=== PATIENT | female | born 1995 | race Two or more races ===

== ENCOUNTER 2022-06-29 08:05 | Inpatient (IN) | payer OTHER ==
[2022-06-29] MEDS ORDERED: DINOPROSTONE 10 MG VAGINAL SUPPOSITORY VG ONE ×2 (10:00→22:50)
[2022-06-29 10:08] VITALS: BMI 28.9
[2022-06-29] MEDS: DEXTROSE 5%-LACTATED RINGERS 1,000 ML IV SCH (10:30)
[2022-06-30] MEDS: DEXTROSE 5%-LACTATED RINGERS 1,000 ML IV SCH ×3 (02:30→17:28)
[2022-06-30] MEDS ORDERED: OXYTOCIN 30 UNITS in 0.9% NS 30 UNIT/500 ML INFUS.BAG IVPB ONE (13:40)
[2022-06-30] MEDS ORDERED: BUTORPHANOL TARTRATE 2 MG/ML VIAL IVPB PRN ×2 (14:12→20:42)
[2022-06-30] MEDS ORDERED: PROMETHAZINE HCL 25 MG/1 ML VIAL IVPB PRN ×2 (14:12→20:42)
[2022-06-30] MEDS: OXYTOCIN 30 UNITS in 0.9% NS 30 UNIT/500 ML INFUS.BAG IVPB SCH (14:45)
[2022-06-30] MEDS ORDERED: PROMETHAZINE HCL 25 MG/1 ML VIAL ONE (20:41)
[2022-06-30] MEDS ORDERED: BUTORPHANOL TARTRATE 2 MG/ML VIAL ONE (20:41)
[2022-07-01] MEDS: DEXTROSE 5%-LACTATED RINGERS 1,000 ML IV SCH (01:35)
[2022-07-01] MEDS ORDERED: FENTANYL/BUPIVACAINE/NS/PF - PCEA - 50 ML DISP.SYRIN EP ONE ×3 (04:22→13:43)
[2022-07-01] MEDS ORDERED: NALOXONE HCL 0.4 MG/ML VIAL IVPUSH PRN (04:39)
[2022-07-01] MEDS ORDERED: ELECTROLYTE-148 SOLN 1,000 ML IV SCH (04:45)
[2022-07-01] MEDS: FENTANYL/BUPIVACAINE/NS/PF - PCEA - 50 ML DISP.SYRIN EP SCH ×2 (05:10→09:43)
[2022-07-01] MEDS: OXYTOCIN 30 UNITS in 0.9% NS 30 UNIT/500 ML INFUS.BAG IVPB SCH (14:46)
[2022-07-01] MEDS ORDERED: morphine SULFATE/PF 1 MG/2 ML (2cc Syringe - QUVA) EP ONE (15:27)
[2022-07-01] MEDS ORDERED: ONDANSETRON 4 MG/2 ML VIAL IVPUSH PRN (15:27)
[2022-07-01] MEDS ORDERED: SODIUM CHLORIDE 0.9% P/F 10 ML VIAL IJ ONE (15:30)
[2022-07-01] MEDS ORDERED: ceFAZolin SODIUM 1 GM VIAL ONE (15:30)
[2022-07-01] MEDS ORDERED: LIDOCAINE HCL/EPINEPHRINE/PF 20 ML VIAL ONE (15:33)
[2022-07-01] MEDS ORDERED: morphine SULFATE (PF) 1 MG/2 ML SYRINGE ONE (16:06)
[2022-07-01] MEDS ORDERED: OXYTOCIN 10 UNITS/ML VIAL ONE ×2 (16:12→16:49)
[2022-07-01] MEDS ORDERED: MIDAZOLAM HCL 2 MG/2 ML SINGLE DOSE VIAL ONE (16:15)
[2022-07-01] MEDS ORDERED: METHYLERGONOVINE MALEATE 0.2 MG/1 ML AMP IM PRN (17:03)
[2022-07-01] MEDS ORDERED: SENNOSIDES/DOCUSATE COMBO (SENNA PLUS) TABLET (UD) PO PRN (17:03)
[2022-07-01] MEDS ORDERED: MEPERIDINE HCL 25 MG/ML VIAL IVPUSH ONE (18:03)
[2022-07-01] MEDS: OXYTOCIN 20 UNITS in 0.9% NS 20 UNIT/1,000 ML INFUS.BAG IV SCH (20:02)
[2022-07-01] MEDS: IBUPROFEN 800 MG/8 ML IJ IVPB PRN (20:20)
[2022-07-02] MEDS: OXYTOCIN 20 UNITS in 0.9% NS 20 UNIT/1,000 ML INFUS.BAG IV SCH (03:54)
[2022-07-02] MEDS ORDERED: oxyCODONE HCL 5 MG TABLET PO PRN (05:03)
[2022-07-02] MEDS: IBUPROFEN 800 MG/8 ML IJ IVPB PRN (09:14)
[2022-07-02 09:51] LABS: BASO % 0.3 % (0-2.0); EOS % 0.5 % (0-4.5); HEMATOCRIT 35.5 % (32.4-45.2); HEMOGLOBIN 11.5 GM/dL (10.7-15.3); LYMPH % 12.4 % (8-40); MCH 28.5 pg (25.7-33.7); MCHC 32.4 g/dl (32.0-36.0); MEAN PLT VOLUME 10.2 fl (7.5-11.1); MONO % 5.5 % (3.8-10.2); NEUT % 81.3 % (42.8-82.8); PLATELET COUNT 203 10^3/uL (134-434); RBC 4.04 M/mm3 (3.60-5.2); RDW 15.2 % (11.6-15.6); WHITE BLOOD COUNT 13.2 K/mm3 (4.0-10.0)
[2022-07-02] MEDS: PRENATAL VITAMINS W/ FOLIC ACID TABLET (FP) PO SCH (10:36)
[2022-07-02] MEDS: ACETAMINOPHEN 325 MG TABLET (FP) PO PRN (14:10)
[2022-07-02] MEDS: SIMETHICONE 80 MG TAB.CHEW (FP) PO PRN ×2 (14:10→20:13)
[2022-07-02] MEDS ORDERED: BISACODYL 10 MG SUPP.RECT RC PRN (17:03)
[2022-07-02] MEDS: IBUPROFEN 600 MG TABLET (FP) PO PRN (20:13)
[2022-07-02] MEDS: oxyCODONE HCL 5 MG TABLET PO PRN (22:51)
[2022-07-03] MEDS: SIMETHICONE 80 MG TAB.CHEW (FP) PO PRN ×5 (03:25→21:41)
[2022-07-03] MEDS: IBUPROFEN 600 MG TABLET (FP) PO PRN ×3 (03:25→21:41)
[2022-07-03] MEDS: oxyCODONE HCL 5 MG TABLET PO PRN ×2 (07:40→17:59)
[2022-07-03] MEDS: PRENATAL VITAMINS W/ FOLIC ACID TABLET (FP) PO SCH (09:46)
[2022-07-03 21:46] VITALS: RESP 18; TEMP 97.9
[2022-07-04] MEDS: IBUPROFEN 600 MG TABLET (FP) PO PRN ×3 (01:23→12:40)
[2022-07-04] MEDS: SIMETHICONE 80 MG TAB.CHEW (FP) PO PRN ×2 (06:35→12:40)
[2022-07-04] MEDS: ACETAMINOPHEN 325 MG TABLET (FP) PO PRN (09:05)
[2022-07-04] MEDS: PRENATAL VITAMINS W/ FOLIC ACID TABLET (FP) PO SCH (09:05)
[2022-07-04 10:29] VITALS: BP 124/84; PULSE 80
== END 2022-07-04 14:20 | disposition home or self-care (01) | DRG 540 ==
LOC: JLDR 08:05 → J3W 07-01 19:36
PROVIDERS: ADMIT Obstetrics & Gynecology; ATTEND Obstetrics & Gynecology
PROC: 3E0P7VZ Introduction of Hormone into Female Reproductive, Via Natural or Artificial Opening (ICD-10-PCS; 2022-06-29)
PROC: 3E033VJ Introduction of Other Hormone into Peripheral Vein, Percutaneous Approach (ICD-10-PCS; 2022-06-30)
PROC: 10D00Z1 Extraction of Products of Conception, Low, Open Approach (ICD-10-PCS; principal; 2022-07-01)
DX: O48.0 Post-term pregnancy (principal); O61.0 Failed medical induction of labor; O62.9 Abnormality of forces of labor, unspecified; Z3A.40 40 weeks gestation of pregnancy; Z37.0 Single live birth
CPT/HCPCS: 36415; 85025; 88307-TC; C9803-CS; U0003; U0005